=== PATIENT | female | born 1945 | race Caucasian/White ===

== ENCOUNTER 2025-06-02 11:56 | Emergency (ER) | payer OTHER, MEDICARE | END 2025-06-02 14:38 | disposition home or self-care (01) | LOC: JP.ED 11:56 | DX: I10 Essential (primary) hypertension (principal); R51.9 Headache, unspecified; Z88.0 Allergy status to penicillin; Z88.2 Allergy status to sulfonamides; Z79.01 Long term (current) use of anticoagulants; Z79.899 Other long term (current) drug therapy; V49.49XA Driver injured in collision with other motor vehicles in traffic accident, initial encounter; Y93.89 Activity, other specified | CPT/HCPCS: 70450; 70450-26; 72125; 72125-26; 99284 ==